=== PATIENT | male | born 1965 | race Caucasian/White ===

== ENCOUNTER 2019-11-08 16:41 | Emergency (ER) | payer MEDICARE, MEDICAID ==
--- NOTE | 2019-11-08 16:55 | ED General ---
General Source of Information: Caregiver, EMS Exam Limitations: Other (patient is a mentally handicapped with his in a alf) History of Present Illness Date Seen by Provider: Nov 08, 2019 Time Seen by Provider: 16:51 Initial Comments Patient's 54-year-old male from a alf brought in for concern of a bowel obstruction is had no vomiting no abdominal distention he has a colostomy bag present this concern was based on distention of the colostomy bag with no E fluids since this morning. Patient does not appear to be in any pain is a poor historian says he wants to go home over and over. He denies any pain, records from the facility reviewed and found to be quite inadequate in delineating his chronic long-term problems the reason for the colostomy or his other medical conditions. Associated Systoms: Denies Symptoms Allergies and Home Medications Allergies Coded Allergies: lorazepam (Verified Allergy, Unknown, 11/08/19) Patient Home Medication List Home Medication List Reviewed: Yes Review of Systems Review of Systems Constitutional: no symptoms reported EENTM: no symptoms reported Respiratory: no symptoms reported Cardiovascular: no symptoms reported Gastrointestinal: no symptoms reported Genitourinary: no symptoms reported Musculoskeletal: no symptoms reported Skin: no symptoms reported Psychiatric/Neurological: No Symptoms Reported Hematologic/Lymphatic: No Symptoms Reported All Other Systems Reviewed Negative Unless Noted: No (able to perform review of systems due to the patient's limited ability to answer questions or communicate) Past Yvpdhux-Gaicpx-Ilexct Hx Past Med/Social Hx: Reviewed Nursing Past Med/Soc Hx Physical Exam Vital Signs Vital Signs - First Documented 11/08/19 11/08/19 16:53 19:00 Temp 36.3 Pulse 93 Resp 20 B/P (MAP) 138/79 (98) Pulse Ox 97 O2 Delivery Room Air Capillary Refill : Height, Weight, BMI Height: '" Weight: lbs. oz. kg; BMI Method: General Appearance: No Apparent Distress, WD/WN HEENT: PERRL/EOMI, Normal ENT Inspection Neck: Full Range of Motion, Normal Inspection Respiratory: Chest Non Tender, Lungs Clear, Normal Breath Sounds Cardiovascular: Regular Rate, Rhythm, No JVD, Normal Peripheral Pulses Gastrointestinal: Normal Bowel Sounds, No Organomegaly, Non Tender, Soft; No Abnormal Bowel Sounds, No Hernia, No Mass Rectal: Other (colostomy bag present with fecal matter present. Tympany no borborygmi, ) Extremity: Normal Capillary Refill, Normal Inspection, Normal Range of Motion, Non Tender Neurologic/Psychiatric: Alert, No Motor/Sensory Deficits; No Normal Mood/Affect; Other (patient is awake alert and follows commands but does not answer questions directly speech is clear but mostly is repetitively wants to go home he wants to go home overnight over clearly has intellectual disability but does not categorize his records) Progress/Results/Core Measures Suspected Sepsis SIRS Temperature: Pulse: Respiratory Rate: Blood Pressure / Mean: Results/Orders My Orders Orders - ABIGAIL ADAMSON DO Ct Abdomen/Pelvis Wo (11/08/19 16:48) Vital Signs/I&O 11/08/19 11/08/19 16:53 19:00 Temp 36.3 Pulse 93 102 Resp 20 20 B/P (MAP) 138/79 (98) 180/97 Pulse Ox 97 97 O2 Delivery Room Air Capillary Refill : Progress Note : Progress Note The patient has no signs or symptoms of bowel obstruction that would classically be present his vital signs are all normal physical exam is unremarkable. We've at least passing gas as the colostomy bag is inflated. Plan will be a noncontrasted CT screening his abdomen to allay the fears of the facility personnel and probably return home Departure Impression Primary Impression: Colostomy care Disposition: 01 HOME, SELF-CARE Condition: Stable Departure-Patient Inst. Patient Instructions: No Instuctions Given ABIGAIL ADAMSON DO Nov 08, 2019 16:55
--- NOTE | 2019-11-08 17:17 | Diagnostic Imaging Report ---
CT ABDOMEN/PELVIS WO TECHNIQUE: Unenhanced CT imaging of the abdomen and pelvis was performed. 2-D reformats are created and submitted for interpretation. Automatic exposure controls were utilized to optimize patient dose. INDICATION: Enlarging stoma hernia. Bowel obstruction evaluation. Patient is mentally handicapped. COMPARISON: None available. FINDINGS: Evaluation of the abdominal viscera is mildly limited without contrast. Lower chest: The lung bases are clear. No pericardial or pleural effusion. Peritoneum: No free intraperitoneal air or fluid. Liver and biliary system: Unenhanced liver is normal. The gallbladder is normal. No biliary duct dilation. Spleen and Pancreas: Spleen is normal. Unenhanced pancreas is grossly normal. Adrenals: Normal. tract: No renal or ureteral calculi. No obstructive uropathy. Urinary bladder is partially distended with mild circumferential wall thickening. GI tract: Stomach is partially filled with fluid but is otherwise decompressed. No bowel obstruction. No pericolonic inflammatory changes. Left lower quadrant colostomy is present. There is no associated parastomal hernia. No fluid within the hernia sac to suggest strangulation. Mild circumferential wall thickening of the rectum is noted. Appendix is normal. Vasculature and Lymph nodes: Normal caliber aorta. No abdominal or pelvic lymphadenopathy. Musculoskeletal: No concerning osseous lesion. IMPRESSION: 1. No bowel obstruction or parastomal hernia. 2. No urinary tract calculi or obstructive uropathy. 3. Mild circumferential wall thickening of the urinary bladder could be due to underdistention. However, correlation with urinalysis is advised to evaluate for urinary tract infection. Dictated by: Dictated on workstation # [id number]
[2019-11-08 19:00] VITALS: BP 180/97
== END 2019-11-08 19:00 | disposition home or self-care (01) ==
LOC: EDUNIT# 16:41 → ER FS 16:43
DX: Z43.3 Encounter for attention to colostomy (principal); Z88.8 Allergy status to other drugs, medicaments and biological substances
CPT/HCPCS: 74176

== ENCOUNTER 2021-07-20 10:51 | Emergency (ER) | payer MEDICARE, MEDICAID ==
[~2021-07-20] VITALS: Ht 170.2 cm; Wt 82.6 kg
--- OUTSIDE RECORDS SUMMARY | 2021-07-20 10:58 | XMS REPORT | Clinical Summary ---
Author Author [facility] Organization [facility] Address Unknown Phone Unavailable Care Team Providers Care Electrical Research Engineer Name Role Phone Prieto Rosa MD PCP Teja Wheatley MD Unavailable Source Comments Some departments are not documenting in the electronic medical record. If you d o not see the information that you expected, contact Release of Information in [facility] [employer] Information Management department at [phone] for further assistan ce in locating additional records.[facility] Allergies Comments Active Allergy Reactions Severity Noted Date Lorazepam AGITATION High 03/13/2019 Diazepam UNKNOWN Low 02/23/2020 Medications End Date Status Medication Sig Dispensed Refills Start Date Active carBAMazepine ER Take 200 mg 0 (CARBATROL) 200 mg by mouth capsule twice daily. Active loratadine (CLARITIN) 10 Take 10 mg by 0 mg tablet mouth every morning. Active tamsulosin (FLOMAX) 0.4 Take 0.4 mg 0 mg capsule by mouth daily. Do not crush, chew or open capsules. Take 30 minutes following the same meal each day. Active metoclopramide (REGLAN) 5 Take 5 mg by 0 mg tablet mouth twice daily. Active esomeprazole DR(+) Take 40 mg by 0 (NEXIUM) 40 mg capsule mouth every morning. Take on an empty stomach at least 1 hour before or 2 hours after food. Active diazePAM (VALIUM) 2 mg Take 2 mg by 0 tablet mouth twice daily. Active bisacodyl (DULCOLAX) 5 mg Take 3 0 tablet tablets by mouth as needed if no bowel movement for 3 days Active acetaminophen (TYLENOL) Take 500 mg 0 500 mg tablet by mouth every 8 hours as needed for Pain or Fever > .... Max of 4,000 mg of acetaminophen in 24 hours. Active promethazine (PHENERGAN) Take 25 mg by 0 25 mg tablet mouth every 8 hours as needed for Nausea or Vomiting. Active loperamide (IMODIUM A-D) Take 2 mg by 0 2 mg capsule mouth as Needed for Diarrhea. Take 2 capsules by mouth initially, followed by 1 capsule by mouth after each loose stool up to a maximum of 8 tablets in 24 hours. Active lactulose 10 gram/15 mL Take 20 g by 0 oral solution mouth daily. Active miconazole (MICOTIN) 2 % Apply 0 powder topically between toes once daily Active polyethylene glycol 3350 Take by 0 (MIRALAX PO) mouth. Active Problems Problem Noted Date History of small bowel obstruction 04/03/2019 SBO (small bowel obstruction) 03/10/2019 Left hemiplegia 03/09/2019 Pneumonia 03/09/2019 Surgical History Surgery Date Site/Laterality Comments COLOSTOMY ~2010 COLOSTOMY REVISION 02/07/2019 - 03/08/2019 REVISION COLOSTOMY 03/06/2019 Subsequent revision to primary revision Medical History Medical History Date Comments Mental disability Anxiety Bowel obstruction (HCC) BPH (benign prostatic hyperplasia) Hepatitis C Urinary retention Seasonal allergies Social History Date Tobacco Use Types Packs/Day Years Used Never Smoker Smokeless Tobacco: Never Used Sex Assigned at Date Recorded Not on file Last Filed Vital Signs Reading Time Taken Comments Vital Sign 146/110 07/07/2020 11:21 AM CDT patient couldnt stay still Blood Pressure 121 07/07/2020 11:21 AM CDT Pulse 36.5 C (97.7 F) 07/07/2020 11:21 AM CDT Temperature 16 07/07/2020 11:21 AM CDT Respiratory Rate 97% 07/07/2020 11:21 AM CDT Oxygen Saturation - - Inhaled Oxygen Concentration 77.1 kg (170 lb) 07/07/2020 11:21 AM CDT Weight 165.1 cm (5' 5") 07/07/2020 11:21 AM CDT Height 28.29 07/07/2020 11:21 AM CDT Body Mass Index Plan of Treatment Health Maintenance Due Date Last Done Comments MEDICARE ANNUAL WELLNESS 1964 VISIT HIV SCREENING 1979 DTAP/TDAP VACCINES (1 - 1982 Tdap) HEPATITIS C SCREENING 1982 PHYSICAL (COMPREHENSIVE) 1982 EXAM COLORECTAL CANCER 2014 SCREENING SHINGLES RECOMBINANT 2014 VACCINE (1 of 2) INFLUENZA VACCINE 04/09/2021 Goals Goal Patient Associated Recent Progress Patient-Stat Aut hor Goal Type Problems ed? 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 needed Does the patient want any intervention Yes for a pre-arrest emergency which would necessitate transfer to an ICU setting? Respiratory emergency: does the patient Yes want to have intubation with mechanical ventilation? Symptomatic/hypotensive dysrhythmia with Not discuss ed a pulse: does the patient want cardioversion? Hypotension: does the patient want the Yes use of vasopressors if needed for blood pressure? Respiratory emergency: does the patient Yes want to have a trial of non-invasive positive pressure ventilation (NIPPV/BiPAP)? If all questions were answered "No", Instruction DNAR-FI is not the correct resuscitation Acknowledge d status order, please refer to reference links below to help you determine the correct order: 03/10/2019 4:01 PM Full Code 03/09/2019 6:54 PM Provider has discussed Code Status No, more discussi on w/Patient or Family? needed
--- NOTE | 2021-07-20 11:12 | ED General ---
General Stated Complaint: WOUND History of Present Illness Date Seen by Provider: Jul 20, 2021 Time Seen by Provider: 11:09 Initial Comments Patient presenting to the emergency department for evaluation of stomal irritation. Patient had his stoma done by a Dr. Brewster in [place]. Patient has not had any increased complaints of pain fevers and the stoma is perfectly functioning but when they change the back they noticed that there is some irritation at the base. He is in no acute distress with normal vital signs. Allergies and Home Medications Allergies Coded Allergies: lorazepam (Verified Allergy, Unknown, 11/08/19) Patient Home Medication List Home Medication List Reviewed: Yes Review of Systems Review of Systems Constitutional: no symptoms reported EENTM: no symptoms reported Gastrointestinal: no symptoms reported All Other Systems Reviewed Negative Unless Noted: Yes Past Vpedrzr-Kyxbzh-Nfoosi Hx Seasonal Allergies Seasonal Allergies: Yes Past Medical History Surgeries: Yes (Colostomy) Bowel Surgery Respiratory: No Cardiac: No Neurological: Yes (Intellectual Disabilities) Developmental Disorder, Seizure Disorder Benign Prostatic Hyperpl Gastrointestinal: Yes (Colostomy, Dysphagia) Gastroesophageal Reflux, Chronic Constipation Musculoskeletal: No Endocrine: Yes (Hypokalemia) Cancer: No Psychosocial: Yes Anxiety, Bipolar, Violent Behavior Integumentary: No Blood Disorders: No (Posthemorrhagic Anemia) Physical Exam Vital Signs Capillary Refill : Height, Weight, BMI Height: '" Weight: lbs. oz. kg; BMI Method: General Appearance: No Apparent Distress, WD/WN Respiratory: No Respiratory Distress Cardiovascular: Regular Rate, Rhythm Gastrointestinal: Non Tender, Soft, Other (Stoma appears intact with no signs of perforation or drainage. At the base of the stoma there appears to be irritated tissue where it hits up against to the base of the dressing.) Skin: Normal Color, Warm/Dry Progress/Results/Core Measures Suspected Sepsis SIRS Temperature: Pulse: Respiratory Rate: Blood Pressure / Mean: Results/Orders Vital Signs/I&O Capillary Refill : Progress Note : Progress Note Patient's dressing may be too tight at the base of his stoma so recommendation was made to make a bigger hole size so does not hitting right up against his stoma. There is no signs of acute infection perforation or other emergent pathology so I recommended following Dr. Brewster within 1 week for recheck and come back anytime with any new concerns. Caregiver aware and agreeable with plan. Departure Impression Primary Impression: Stoma dermatitis Disposition: HOME, SELF-CARE Condition: Stable Departure-Patient Inst. Referrals: NO,LOCAL PHYSICIAN (PCP/Family) Primary Care Physician Patient Instructions: Durable Medical Equipment CORAL GLASS DO Jul 20, 2021 11:12
[2021-07-20 11:17] VITALS: BP 149/102
== END 2021-07-20 11:17 | disposition home or self-care (01) ==
LOC: EDUNIT# 10:51 → ER FS 10:53
DX: L30.8 Other specified dermatitis (principal)
CPT/HCPCS: 99281

== ENCOUNTER 2023-04-08 14:49 | Emergency (ER) | payer MEDICARE, MEDICAID ==
--- NOTE | 2023-04-08 15:07 | ED General ---
General Stated Complaint: STOMA PUNCTURE Source of Information: Patient, Other (caregiver) Exam Limitations: No Limitations History of Present Illness Date Seen by Provider: Apr 08, 2023 Time Seen by Provider: 14:53 Initial Comments 57-year-old male with prior bowel obstruction now with a stoma coming in for stoma evaluation. They are concerned there could be a small puncture wound on it. He is not having any pain, no nausea or vomiting, and having normal output. Allergies and Home Medications Allergies Coded Allergies: lorazepam (Verified Allergy, Unknown, 11/08/19) Patient Home Medication List Home Medication List Reviewed: Yes Review of Systems Review of Systems Constitutional: No fever EENTM: no symptoms reported Respiratory: no symptoms reported Cardiovascular: no symptoms reported Gastrointestinal: see HPI Genitourinary: no symptoms reported Musculoskeletal: no symptoms reported Past Bgkikiu-Xsadyi-Blgajq Hx Patient Social History Tobacco Use?: No Immunizations Up To Date First/Initial COVID19 Vaccinat: 10/2020 Second COVID19 Vaccination [place]: 11/2020 Seasonal Allergies Seasonal Allergies: Yes Past Medical History Surgeries: Yes (Colostomy) Bowel Surgery Respiratory: No Cardiac: No Neurological: Yes (Intellectual Disabilities) Developmental Disorder, Seizure Disorder Benign Prostatic Hyperpl Gastrointestinal: Yes (Colostomy, Dysphagia) Gastroesophageal Reflux, Chronic Constipation Musculoskeletal: No Endocrine: Yes (Hypokalemia) Cancer: No Psychosocial: Yes Anxiety, Bipolar, Violent Behavior Integumentary: No Blood Disorders: No (Posthemorrhagic Anemia) Physical Exam Vital Signs Capillary Refill : Height, Weight, BMI Height: '" Weight: lbs. oz. kg; 28.00 BMI Method: General Appearance: No Apparent Distress, WD/WN Eyes: Bilateral Eye Normal Inspection HEENT: PERRL/EOMI, Normal ENT Inspection, Pharynx Normal Neck: Full Range of Motion, Non Tender, Supple Respiratory: Chest Non Tender, Lungs Clear, Normal Breath Sounds, No Accessory Muscle Use, No Respiratory Distress Cardiovascular: Regular Rate, Rhythm, No Edema, Normal Peripheral Pulses Gastrointestinal: Normal Bowel Sounds, Non Tender, Soft; No Distended, No Guarding; Other (Stoma protruding, red, skin around it appears healthy, small little abrasion to the stoma with no bleeding, stoma is having output) Back: Normal Inspection, No CVA Tenderness Extremity: Normal Capillary Refill, Normal Inspection, Normal Range of Motion, Non Tender, No Calf Tenderness, No Pedal Edema Neurologic/Psychiatric: Alert, No Motor/Sensory Deficits, Normal Mood/Affect Skin: Normal Color, Warm/Dry Progress/Results/Core Measures Suspected Sepsis SIRS Temperature: Pulse: Respiratory Rate: Blood Pressure / Mean: Results/Orders Vital Signs/I&O Capillary Refill : Progress Note : Progress Note Patient was brought in for evaluation of his stoma. ABCs were intact and vitals were stable on presentation. There was a small wound on the edge of the stoma which is not bleeding, and does not appear to be full-thickness clinically. He is having stoma output and is well-appearing. His abdomen is soft and nontender. Clinically he is nontoxic. Patient is adamant that he wants to leave. I will recommend that he follow-up with the surgeon as soon as possible but I do not think he needs any emergent surgery at this time or transfer. Departure Impression Primary Impression: Stoma bleed Disposition: 01 HOME, SELF-CARE Condition: Stable Departure-Patient Inst. Decision time for Depature: 15:10 Referrals: REGINALDO SOLIMAN MD (PCP) Primary Care Physician Add. Discharge Instructions: There does appear to be a small wound in the stoma, does not appear to be full- thickness. If there is significant bleeding, or he loses stoma output, has severe abdominal pain, or fever, we would want him evaluated right away. Otherwise, please have him follow-up with his surgeon as soon as possible. FATEMEH HERCULES MD Apr 08, 2023 15:06
== END 2023-04-08 15:10 | disposition home or self-care (01) ==
LOC: EDUNIT# 14:49 → ER FS 14:51
DX: K94.01 Colostomy hemorrhage (principal); Z98.890 Other specified postprocedural states
CPT/HCPCS: 99281